=== PATIENT | male | born 1935 | race Caucasian/White ===

== ENCOUNTER → 2017-12-10 | Outpatient (CLI) | payer OTHER ==
[~2017-12-10] MED LIST: CLOP75TA14 PO; FAMO20TA8 PO; INSU100V12 SQ; ISOS30TA6 PO; METF10004 PO; METO10TA3 PO; METO25TA6 PO; OMEG-135 PO; PANT40TA25 PO; RIVA20TA PO
== END ==
LOC: SHCH 15:08
PROVIDERS: ATTEND Internal Medicine Cardiovascular Disease
DX: I87.2 Venous insufficiency (chronic) (peripheral) (principal)
CPT/HCPCS: 93971

== ENCOUNTER → 2018-01-09 | Outpatient (CLI) | payer OTHER | END | disposition home or self-care (01) | LOC: RAH 09:11 | PROVIDERS: ATTEND Family Medicine | DX: N28.1 Cyst of kidney, acquired (principal); K76.0 Fatty (change of) liver, not elsewhere classified | CPT/HCPCS: 76700 ==

== ENCOUNTER → 2018-03-12 | Outpatient (CLI) | payer OTHER | END | disposition home or self-care (01) | LOC: OIH 07:56 | PROVIDERS: ATTEND Family Medicine | DX: R10.13 Epigastric pain (principal) | CPT/HCPCS: 74176 ==

== ENCOUNTER → 2018-04-04 | Outpatient (CLI) | payer OTHER ==
[~2018-04-04] MED LIST changes: +REGADENOSON 0.4 MG/5 ML PF SYG IVP SCH
== END | disposition home or self-care (01) ==
LOC: SHCH 10:03
PROVIDERS: ATTEND Internal Medicine Cardiovascular Disease
DX: I20.9 Angina pectoris, unspecified (principal)
CPT/HCPCS: 78452; 93017; 96374; A9500 ×2; J2785

== ENCOUNTER 2018-04-20 10:16 | Inpatient (IN) | payer OTHER ==
[~2018-04-20] VITALS: Ht 176.5 cm; Wt 88.5 kg
[2018-04-20] MEDS ORDERED: FENTANYL CITRATE PF 50 MCG/1 ML 2ML VIAL ONE (10:29)
[2018-04-20 10:40] LABS: BASOPHILS % (AUTO) 0.7 % (0.0-5.0); EOSINOPHILS % (AUTO) 2.9 % (0.0-8.0); LYMPHOCYTES % (AUTO) 14.4 % (21.0-51.0); MEAN CORPUSCULAR HEMOGLOBIN 30.4 pg (27.0-33.0); MEAN CORPUSCULAR HGB CONC 34.1 g/dL (32.0-36.0); MEAN CORPUSCULAR VOLUME 89.1 fL (79-99); MONOCYTES % (AUTO) 12.9 % (3.0-13.0); NEUTROPHILS % (AUTO) 69.1 % (40.0-77.0); PLATELET COUNT (AUTO) 239 K/uL (130-400); RED BLOOD CELL COUNT(AUTO) 4.49 MIL/uL (4.50-6.20); RED CELL DISTRIBUTION WIDTH 14.5 % (11.0-15.5); WHITE BLOOD COUNT (AUTO) 8.1 K/uL (4.8-10.8)
[2018-04-20 11:06] LABS: INR 0.95 (0.85-1.15)
[2018-04-20 11:15] LABS: CARBON DIOXIDE 24 mmol/L (21-32); GLOMERULAR FILTR. RATE CALC 76 mL/min (>60); GLUCOSE,RANDOM 130 mg/dL (70-105); UREA NITROGEN, BLOOD 21 mg/dL (7-18)
[2018-04-20 11:17] LABS: ALANINE AMINOTRANSFERASE 22 U/L (12-78); ASPARTATE AMINOTRANSFERASE 19 U/L (10-37); BILIRUBIN,DIRECT < 0.1 mg/dL (0.0-0.3); BILIRUBIN,TOTAL 0.3 mg/dL (0.2-1.0); CREATINE KINASE MB 2.3 ng/mL (0.5-3.6); CREATINE KINASE, TOTAL 59 U/L (21-232); TOTAL PROTEIN, SERUM 6.9 g/dL (6.0-8.3)
[2018-04-20 11:37] LABS: POTASSIUM 3.9 mmol/L (3.5-5.1); SODIUM SERUM 137 mmol/L (136-145)
[2018-04-20 11:50] LABS: CHLORIDE 108 mmol/L (101-111)
[2018-04-20] MEDS ORDERED: NITROGLYCERIN 1GM/1 INCH PACKET TD ONE ×2 (14:51→20:34)
[2018-04-20] MEDS ORDERED: ASPIRIN 325MG EC TAB 325 MG TABLET.DR PO ONE (14:51)
[2018-04-20 15:30] VITALS: BP 144/69
[2018-04-20] MEDS ORDERED: INSU100V12 SQ (18:27)
[2018-04-20] MEDS ORDERED: METF10004 PO (18:27)
[2018-04-20] MEDS ORDERED: ACETAMINOPHEN EXTRA STRENGTH 500 MG TABLET PO PRN (18:45)
[2018-04-20] MEDS ORDERED: ONDANSETRON HCL 4 MG/2 ML VIAL IVP PRN (18:45)
[2018-04-20 19:35] VITALS: BP 140/78
[2018-04-20 19:54] LABS: CREATINE KINASE MB 1.4 ng/mL (0.5-3.6); CREATINE KINASE, TOTAL 33 U/L (21-232); MYOGLOBIN 55 ng/mL (10-92); TROPONIN I < 0.04 ng/mL (0.00-0.06)
[2018-04-20] MEDS: INSULIN GLARGINE 100 UNITS/ML 10 ML VIAL SQ SCH (20:32)
[2018-04-20] MEDS: NITROGLYCERIN 1GM/1 INCH PACKET TD SCH (21:32)
[2018-04-20] MEDS: ENOXAPARIN SODIUM 80 MG/0.8 ML SQ SCH (21:33)
[2018-04-20] MEDS: INSULIN HUMULIN R 100 UNIT/ML 3ML SQ SCH (21:37)
[2018-04-20 23:25] VITALS: BP 122/50
[2018-04-21] MEDS ORDERED: ISOS30TA6 PO (01:43)
[2018-04-21] MEDS ORDERED: PANT40TA25 PO (01:43)
[2018-04-21] MEDS ORDERED: CLOP75TA14 PO (01:43)
[2018-04-21] MEDS ORDERED: METO25TA6 PO (01:43)
[2018-04-21] MEDS ORDERED: FAMO20TA8 PO (01:43)
[2018-04-21] MEDS ORDERED: OMEG-135 PO (01:43)
[2018-04-21] MEDS ORDERED: METO10TA3 PO (01:43)
[2018-04-21] MEDS ORDERED: RIVA20TA PO (01:43)
[2018-04-21 03:20] VITALS: BP 148/69
[2018-04-21 03:46] LABS: CHOLESTEROL 147 mg/dL (<200); CREATINE KINASE MB 1.4 ng/mL (0.5-3.6); CREATINE KINASE, TOTAL 26 U/L (21-232); HDL CHOLESTEROL 28 mg/dL (29-71); LDL DIRECT 94 mg/dL (0-99); MYOGLOBIN 61 ng/mL (10-92); TRIGLYCERIDES 137 mg/dL (30-200); TROPONIN I < 0.04 ng/mL (0.00-0.06)
[2018-04-21] MEDS: NITROGLYCERIN 1GM/1 INCH PACKET TD SCH ×3 (05:46→22:57)
[2018-04-21] MEDS: INSULIN HUMULIN R 100 UNIT/ML 3ML SQ SCH ×4 (06:16→21:50)
[2018-04-21 08:04] VITALS: BP 134/66
[2018-04-21] MEDS ORDERED: PANTOPRAZOLE SODIUM 40 MG TABLET.DR PO SCH (09:00)
[2018-04-21] MEDS: ENOXAPARIN SODIUM 80 MG/0.8 ML SQ SCH (09:42)
[2018-04-21 11:50] VITALS: BP 152/88
[2018-04-21 17:22] VITALS: BP 149/62
[2018-04-21 19:34] VITALS: BP 151/75
[2018-04-21] MEDS: METOPROLOL TARTRATE 25 MG TAB PO SCH (21:46)
[2018-04-21] MEDS: INSULIN GLARGINE 100 UNITS/ML 10 ML VIAL SQ SCH (21:51)
[2018-04-21] MEDS: MORPHINE SULFATE 4 MG/1ML SYG IM PRN (21:59)
[2018-04-21 23:53] VITALS: BP 135/57
[2018-04-22] VITALS (23 sets, daily range): BP systolic 113–171; BP diastolic 41–85
[2018-04-22 04:47] LABS: BASOPHILS % (AUTO) 0.8 % (0.0-5.0); HEMATOCRIT 38.1 % (42-54); LYMPHOCYTES % (AUTO) 20.6 % (21.0-51.0); MEAN CORPUSCULAR HEMOGLOBIN 30.6 pg (27.0-33.0); MEAN CORPUSCULAR HGB CONC 34.1 g/dL (32.0-36.0); MEAN CORPUSCULAR VOLUME 89.7 fL (79-99); MONOCYTES % (AUTO) 14.5 % (3.0-13.0); NEUTROPHILS % (AUTO) 61.1 % (40.0-77.0); PLATELET COUNT (AUTO) 225 K/uL (130-400); RED BLOOD CELL COUNT(AUTO) 4.25 MIL/uL (4.50-6.20); RED CELL DISTRIBUTION WIDTH 14.8 % (11.0-15.5); WHITE BLOOD COUNT (AUTO) 7.3 K/uL (4.8-10.8)
[2018-04-22 05:04] LABS: POTASSIUM 3.1 mmol/L (3.5-5.1)
[2018-04-22] MEDS ORDERED: POTASSIUM CHLORIDE 10% ELIXIR 20 MEQ/15 ML UDCUP PO PRN (06:00)
[2018-04-22] MEDS ORDERED: POTASSIUM CHLORIDE 20MEQ/100ML 100 ML IV PRN (06:00)
[2018-04-22] MEDS ORDERED: LIDOCAINE HCL-MPF 1% 2ML VIAL IVP PRN (06:00)
[2018-04-22] MEDS ORDERED: POTASSIUM CHLORIDE 20 MEQ ERTAB PO PRN (06:00)
[2018-04-22 06:20] LABS: INR 0.91 (0.85-1.15); PARTIAL THROMBOPLASTIN TIME 27.6 SEC (26.3-35.5); PROTHROMBIN TIME 9.6 SEC (9.6-11.6)
[2018-04-22] MEDS: INSULIN HUMULIN R 100 UNIT/ML 3ML SQ SCH ×4 (06:34→21:00)
[2018-04-22] MEDS: PANTOPRAZOLE SODIUM 40 MG TABLET.DR PO SCH (06:34)
[2018-04-22] MEDS: NITROGLYCERIN 1GM/1 INCH PACKET TD SCH ×2 (06:40→15:00)
[2018-04-22] MEDS ORDERED: SODIUM CHLORIDE 0.9% 250 ML IV ONE (07:09)
[2018-04-22] MEDS ORDERED: BIVALIRUDIN 250 MG/VIAL IV ONE (07:30)
[2018-04-22] MEDS ORDERED: ISOVUE-370 50ML VIAL IV ONE (07:30)
[2018-04-22] MEDS ORDERED: IOPAMIDOL-370 100 ML VIAL IV ONE (07:30)
[2018-04-22] MEDS ORDERED: NITROGLYCERIN 5 MG/ML 10 ML VIAL IV ONE (07:30)
[2018-04-22] MEDS ORDERED: LIDOCAINE HCL 2% 20ML ONE (07:30)
[2018-04-22] MEDS ORDERED: POTASSIUM CHLORIDE 10% ELIXIR 20 MEQ/15 ML UDCUP PO SCH (07:45)
[2018-04-22] MEDS ORDERED: IOPAMIDOL-370 75 ML VIAL IV ONE (08:33)
[2018-04-22] MEDS ORDERED: ASPIRIN 81MG TAB.CHEW ONE (08:38)
[2018-04-22] MEDS ORDERED: CLOPIDOGREL BISULFATE 300 MG TAB ONE (08:38)
[2018-04-22] MEDS ORDERED: ASPIRIN 325 MG TABLET PO SCH (09:00)
[2018-04-22] MEDS: ISOSORBIDE MONO 30MG TAB SR PO SCH ×2 (09:00→13:36)
[2018-04-22] MEDS: ASPIRIN 81 MG EC TAB PO SCH (09:00)
[2018-04-22] MEDS: METOPROLOL TARTRATE 25 MG TAB PO SCH ×3 (09:00→22:38)
[2018-04-22] MEDS ORDERED: SODIUM CHLORIDE 0.9% 1000ML 1,000 ML IV SCH (09:19)
[2018-04-22 10:29] LABS: CREATINE KINASE MB 0.8 ng/mL (0.5-3.6); CREATINE KINASE, TOTAL 25 U/L (21-232); MYOGLOBIN 51 ng/mL (10-92); TROPONIN I < 0.04 ng/mL (0.00-0.06)
[2018-04-22] MEDS: MORPHINE SULFATE 4 MG/1ML SYG IM PRN ×2 (12:22→22:38)
[2018-04-22] MEDS ORDERED: ATORVASTATIN CALCIUM 10 MG TABLET PO SCH (21:00)
[2018-04-22] MEDS: INSULIN GLARGINE 100 UNITS/ML 10 ML VIAL SQ SCH (21:00)
[2018-04-22] MEDS ORDERED: ATORVASTATIN CALCIUM 20 MG TABLET PO SCH (21:00)
[2018-04-23] VITALS: BP 113/54
[2018-04-23 03:54] LABS: HEMATOCRIT 37.3 % (42-54); MEAN CORPUSCULAR HEMOGLOBIN 30.6 pg (27.0-33.0); MEAN CORPUSCULAR HGB CONC 34.3 g/dL (32.0-36.0); MEAN CORPUSCULAR VOLUME 89.2 fL (79-99); PLATELET COUNT (AUTO) 262 K/uL (130-400); RED BLOOD CELL COUNT(AUTO) 4.18 MIL/uL (4.50-6.20); RED CELL DISTRIBUTION WIDTH 14.8 % (11.0-15.5); WHITE BLOOD COUNT (AUTO) 8.1 K/uL (4.8-10.8)
[2018-04-23 04:00] VITALS: BP 119/59
[2018-04-23 04:03] LABS: CREATININE 1.1 mg/dL (0.5-1.5); POTASSIUM 3.7 mmol/L (3.5-5.1)
[2018-04-23] MEDS: INSULIN HUMULIN R 100 UNIT/ML 3ML SQ SCH ×2 (05:30→11:30)
[2018-04-23] MEDS: PANTOPRAZOLE SODIUM 40 MG TABLET.DR PO SCH (06:52)
[2018-04-23] MEDS: ISOSORBIDE MONO 30MG TAB SR PO SCH (07:59)
[2018-04-23] MEDS: METOPROLOL TARTRATE 25 MG TAB PO SCH (07:59)
[2018-04-23 08:00] VITALS: BP 124/55
[2018-04-23] MEDS: ASPIRIN 81 MG EC TAB PO SCH (08:00)
[2018-04-23] MEDS ORDERED: ENOXAPARIN SODIUM 40 MG/0.4 ML SYRINGE SQ SCH (09:00)
[2018-04-23] MEDS ORDERED: CLOPIDOGREL BISULFATE 75 MG TAB PO SCH (09:00)
[2018-04-23] MEDS ORDERED: ENOXAPARIN SODIUM 80 MG/0.8 ML SQ SCH (09:00)
== END 2018-04-23 12:45 | disposition home or self-care (01) | DRG 247 ==
LOC: EDH 10:16 → 2DH 14:30
PROVIDERS: ADMIT Family Medicine; ATTEND Family Medicine
PROC: 027035Z Dilation of Coronary Artery, One Artery with Two Drug-eluting Intraluminal Devices, Percutaneous Approach (ICD-10-PCS; principal; 2018-04-22)
PROC: 4A023N7 Measurement of Cardiac Sampling and Pressure, Left Heart, Percutaneous Approach (ICD-10-PCS; 2018-04-22)
PROC: B2111ZZ Fluoroscopy of Multiple Coronary Arteries using Low Osmolar Contrast (ICD-10-PCS; 2018-04-22)
PROC: B2151ZZ Fluoroscopy of Left Heart using Low Osmolar Contrast (ICD-10-PCS; 2018-04-22)
DX: T82.855A Stenosis of coronary artery stent, initial encounter (principal); I25.110 Atherosclerotic heart disease of native coronary artery with unstable angina pectoris; I50.32 Chronic diastolic (congestive) heart failure; K31.84 Gastroparesis; E11.43 Type 2 diabetes mellitus with diabetic autonomic (poly)neuropathy; E78.5 Hyperlipidemia, unspecified; H91.90 Unspecified hearing loss, unspecified ear; I11.0 Hypertensive heart disease with heart failure; Z87.891 Personal history of nicotine dependence; Z86.718 Personal history of other venous thrombosis and embolism; Z86.73 Personal history of transient ischemic attack (TIA), and cerebral infarction without residual deficits; Z88.8 Allergy status to other drugs, medicaments and biological substances
CPT/HCPCS: 36415; 71045; 80048; 80061; 80076; 82550; 82553; 82948; 83874; 84484; 85025; 85027; 85610; 85730; 93005; 93458; C1769; C1887; C1894; C9600; J0583; J1644; J1650; J1815; J2270; J3010; J3480; J3490; J7030; Q9967

== ENCOUNTER 2018-10-01 09:21 | Day surgery (SDC) | payer OTHER ==
[~2018-10-01] VITALS: Ht 167.6 cm; Wt 78.7 kg
[~2018-10-01 09:21] MED LIST changes: +METF-446 PO; -METF10004 PO; -PANT40TA25 PO; -REGADENOSON 0.4 MG/5 ML PF SYG IVP SCH; +SODIUM CHLORIDE 0.9% 1000ML 1,000 ML IV ONE
[2018-10-01 10:52] VITALS: BP 123/55
[2018-10-01] MEDS ORDERED: xifaxan (11:58)
[2018-10-01] MEDS ORDERED: METO50TA18 PO (11:58)
[2018-10-01] MEDS ORDERED: INSU100V12 SQ (11:58)
[2018-10-01] MEDS ORDERED: RIVA10TA PO (11:58)
[2018-10-01] MEDS ORDERED: cholestyramine (11:58)
[2018-10-01] MEDS ORDERED: DICY20 PO (11:58)
[2018-10-01] MEDS ORDERED: ISOS10TA8 PO (11:58)
[2018-10-01] MEDS ORDERED: DIPH1TAB PO (11:58)
[2018-10-01] MEDS ORDERED: OMEP20CA10 PO (11:58)
[2018-10-01] MEDS ORDERED: PROPOFOL 10 MG/ML 20ML VIAL IV ONE ×2 (12:21)
[2018-10-01 12:51] VITALS: BP 108/77
[2018-10-01 12:56] VITALS: BP 120/52
[2018-10-01 13:01] VITALS: BP 125/54
[2018-10-01 13:06] VITALS: BP 133/60
[2018-10-01 13:12] VITALS: BP 127/59
== END 2018-10-01 13:31 | disposition home or self-care (01) ==
LOC: DAH 09:21 → ENDO 09:21
PROVIDERS: ATTEND Internal Medicine
DX: D12.3 Benign neoplasm of transverse colon (principal); K63.5 Polyp of colon; K62.1 Rectal polyp; E78.5 Hyperlipidemia, unspecified; I10 Essential (primary) hypertension; E11.9 Type 2 diabetes mellitus without complications; Z86.73 Personal history of transient ischemic attack (TIA), and cerebral infarction without residual deficits; Z98.890 Other specified postprocedural states; Z95.5 Presence of coronary angioplasty implant and graft; Z79.899 Other long term (current) drug therapy; Z79.4 Long term (current) use of insulin; Z79.84 Long term (current) use of oral hypoglycemic drugs; Z80.0 Family history of malignant neoplasm of digestive organs; K21.0 Gastro-esophageal reflux disease with esophagitis; I25.10 Atherosclerotic heart disease of native coronary artery without angina pectoris; Z88.8 Allergy status to other drugs, medicaments and biological substances
CPT/HCPCS: 45380; 45385; 82948 ×2; 88305; 93005; A4606; J2704 ×2; J7030

== ENCOUNTER 2018-12-11 08:35 | Day surgery (SDC) | payer MEDICARE ==
[2018-12-11] VITALS (7 sets, daily range): BP systolic 113–131; BP diastolic 40–61
[~2018-12-11 08:35] MED LIST changes: +DICY20 PO; +DIPH1TAB PO; -FAMO20TA8 PO; +ISOS10TA8 PO; -METO10TA3 PO; -METO25TA6 PO; +METO50TA18 PO; -OMEG-135 PO; +OMEP20CA10 PO; +RIVA10TA PO; -RIVA20TA PO; +cholestyramine; +xifaxan
[2018-12-11] MEDS ORDERED: PROPOFOL 10 MG/ML 20ML VIAL IV ONE (11:15)
[2018-12-11] MEDS ORDERED: EPINEPHRINE 1 MG/ML AMPULE ONE (11:26)
== END 2018-12-11 13:20 | disposition home or self-care (01) ==
LOC: ENDO 08:35 → DAH 08:35 → ENDO 13:20
PROVIDERS: ATTEND Internal Medicine
DX: Z09 Encounter for follow-up examination after completed treatment for conditions other than malignant neoplasm (principal); Z86.010 Personal history of colon polyps; E78.5 Hyperlipidemia, unspecified; I10 Essential (primary) hypertension; E11.9 Type 2 diabetes mellitus without complications; D12.0 Benign neoplasm of cecum; D12.3 Benign neoplasm of transverse colon; D12.4 Benign neoplasm of descending colon; D12.2 Benign neoplasm of ascending colon; D12.8 Benign neoplasm of rectum; Z98.890 Other specified postprocedural states; Z79.899 Other long term (current) drug therapy; Z79.01 Long term (current) use of anticoagulants; Z79.4 Long term (current) use of insulin; Z79.84 Long term (current) use of oral hypoglycemic drugs; Z88.8 Allergy status to other drugs, medicaments and biological substances; K21.0 Gastro-esophageal reflux disease with esophagitis; I25.10 Atherosclerotic heart disease of native coronary artery without angina pectoris; R00.1 Bradycardia, unspecified
CPT/HCPCS: 45380; 45381; 45385; 82948; 88305; 93005; A4606; A4649; J0171; J2704; J7030; 45382; 45384

== ENCOUNTER → 2019-06-20 | Outpatient (CLI) | payer MEDICARE ==
[~2019-06-20] MED LIST changes: -CLOP75TA14 PO; +IOHEXOL-350 75 ML VIAL IV ONE; +OMEP-50 PO; -OMEP20CA10 PO; -RIVA10TA PO; -SODIUM CHLORIDE 0.9% 1000ML 1,000 ML IV ONE
== END | disposition home or self-care (01) ==
LOC: RAH 13:53
PROVIDERS: ATTEND Family Medicine
DX: J44.9 Chronic obstructive pulmonary disease, unspecified (principal); I25.10 Atherosclerotic heart disease of native coronary artery without angina pectoris; M47.815 Spondylosis without myelopathy or radiculopathy, thoracolumbar region
CPT/HCPCS: 71275; Q9967